=== PATIENT | female | born 1960 | race Caucasian/White ===

== ENCOUNTER 2023-11-24 14:49 | Emergency (ER) | payer OTHER, BC, SELFPAY ==
[2023-11-24 14:57] VITALS: BP 154/80
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
--- NOTE | 2023-11-24 17:33 | EDRN ---
REviewed discharge instructions with patient. Verbalized understanding. Ambulated with steady gait to the lobby.
[2023-11-24 17:34] VITALS: BP 136/88
== END 2023-11-24 17:35 | disposition home or self-care (01) ==
LOC: EMR 14:49
PROVIDERS: EMERGENCY PHYSICIAN Student in an Organized Health Care Education/Training Program; FAMILY PHYSICIAN Family Medicine
DX: S06.0X0A Concussion without loss of consciousness, initial encounter (principal); S20.219A Contusion of unspecified front wall of thorax, initial encounter; V43.52XA Car driver injured in collision with other type car in traffic accident, initial encounter; R68.84 Jaw pain; R03.0 Elevated blood-pressure reading, without diagnosis of hypertension
CPT/HCPCS: 99284; 70450; 70486; 71101

== ENCOUNTER 2024-02-13 08:00 | Outpatient (RCR) | payer OTHER, BC, SELFPAY | END 2024-02-22 23:59 | disposition home or self-care (01) | LOC: RPT 08:00 | PROVIDERS: ATTENDING PHYSICIAN Nurse Practitioner Adult Health; FAMILY PHYSICIAN Family Medicine | DX: F07.81 Postconcussional syndrome (principal); R41.89 Other symptoms and signs involving cognitive functions and awareness; R26.89 Other abnormalities of gait and mobility; Z73.6 Limitation of activities due to disability | CPT/HCPCS: 97010; 97110; 97112; 97140; 97163 ==

== ENCOUNTER 2024-02-22 14:58 | Day surgery (SDC) | payer BC, SELFPAY ==
[2024-02-22] VITALS (18 sets, daily range): BP systolic 30–139; BP diastolic 55–80; BMI 30.3
[2024-02-22 10:55] LABS: % Basophils 0.3 % (0-2); % Immature Granulocytes 0.4 % (0-0.5); % Lymphocytes 11.1 % (20.5-51.1); % Monocytes 10.2 % (1.7-9.3); Absolute Immature Granulocytes 0.1 10^3/uL (0-0.05); Absolute Lymphocytes 1.5 10^3/uL (1.2-3.4); Absolute Monocytes 1.4 10^3/uL (0.1-0.6); Absolute Neutrophils 10.5 10^3/uL (1.4-6.5); Hematocrit 40.2 % (37.0-47.0); Hemoglobin 14.2 g/dL (12.0-16.0); Mean Corp Hgb Conc. 35.3 g/dL (33.0-37.0); Mean Corpuscular Hgb 32.9 pg (27.0-31.0); Mean Corpuscular Volume 93.1 fL (81.0-99.0); Mean Platelet Volume 9.3 fL (7.4-10.4); Nucleated Red Blood Cells % 0 %; Platelet Count 349 10^3/uL (130-400); Red Blood Cell Count 4.32 10^6/uL (4.20-5.40); Red Cell Dist. Width 12.4 % (11.5-14.5); White Blood Cell Count 13.5 10^3/uL (4.8-10.8)
[2024-02-22 10:56] LABS: Urine Albumin Trace (Neg - Trace); Urine Bilirubin 1+ (Negative); Urine Character Clear (Clear); Urine Color Amber; Urine Glucose Negative (Negative); Urine Ketone 1+ (Negative); Urine Leukocyte 1+ (Negative); Urine Nitrite Positive (Negative); Urine Occult Blood Trace (Negative); Urine Specific Gravity 1.025 (<1.030); Urine Urobilinogen 1+ (Neg - 1+)
[2024-02-22 11:15] LABS: Urine Bacteria Few (Negative); Urine Red Blood Cell 0-2 /HPF (0-2)
[2024-02-22 11:19] LABS: ALT (SGPT) 30 U/L (0-35); AST (SGOT) 25 U/L (14-36); Albumin 4.8 g/dl (3.5-5.0); Alkaline Phosphatase 110 U/L (38-126); Blood Urea Nitrogen 19 mg/dl (7-17); Calcium 10.2 mg/dl (8.4-10.2); Carbon Dioxide 28 mmol/L (22-30); Chloride 100 mmol/L (98-107); Estimated Creatinine Clearance 98 ml/min; Glucose 114 mg/dl (70-99); Lipase 43 U/L (23-300); Potassium 4.2 mmol/L (3.5-5.1); Sodium 139 mmol/L (135-145); Total Bilirubin 0.8 mg/dl (0.2-1.3); eGFR > 60.00
--- NOTE | 2024-02-22 15:14 | CON.GS ---
Consultation
-
Requesting Provider: Douglas
Performing Provider: Jay Jay
Reason for Consultation: Acute appendicitis
Medical History
-
Chief Complaint: Abd pain
History of Present Illness:
63F with acute onset abd pain 2 nights ago, localized to right linda-abdomen. Yesterday the pain progressed and she began to have nausea without vomiting. Her BMs have been normal, she reports dark urine in the ED. Never had this pain before. Denies
f/c. Pain is nonradiating, no exacerbating/relieving factors.
Past Medical History
Past Medical History: Reviewed & Noncontributory
Past Surgical History: Cholecystectomy (lap)
Social History
Tobacco: Non-Smoker
Alcohol: None
Drug: None
Family History
Family History: Reviewed & Noncontributory
Allergies / Home Medications
Allergy/AdvReac Type Severity Reaction Status Date / Time
latex Allergy Unknown Rash Verified 02/22/24 10:51
miconazole Allergy Unknown Rash Verified 02/22/24 10:51
[From Monistat 1 Combo Pack]
Penicillins Allergy Unknown Anaphylaxis Verified 02/22/24 10:51
bee pollen Allergy Anaphylaxis Verified 02/22/24 10:51
ciprofloxacin [From Cipro] Allergy Unknown Verified 02/22/24 10:51
vaccine adjuvant system, Allergy Unknown Verified 02/22/24 10:51
AS01B liposomal
[From Shingrix (PF)]
varicella-zoster virus Allergy Unknown Verified 02/22/24 10:51
glycoprotein E, recombinant
[From Shingrix (PF)]
monistat Allergy Unknown Rash Uncoded 02/22/24 10:51
�Medication �Instructions �Recorded �Confirmed �Type
acetaminophen 650 mg 1,300 mg PO [id number] PRN mild pain 01/25/23 01/25/23 History
tablet,extended release (Tylenol
Arthritis Pain)
sertraline 50 mg tablet 100 mg PO DAILY 01/25/23 09/06/23 History
guaifenesin 600 mg tablet, 600 mg PO Q12 #30 tabs 09/07/23 Rx
extended release 12 hr
prednisone 5 mg tablets in a dose 5 mg PO DIRECTED #21 ea 09/07/23 Rx
pack
Review of Systems
-
A 10 point review of systems was completed, and was negative except as per HPI.
Physical Exam
Vital Signs
Temp Pulse Resp BP Pulse Ox
98.1 F 85 15 114/55 97
02/22/24 10:45 02/22/24 14:15 02/22/24 14:15 02/22/24 14:00 02/22/24 14:15
02/21/24 02/22/24 02/23/24
06:59 06:59 06:59
Actual Weight 90.265 kg
Body Mass Index (BMI) 30.3
Lab Results
02/22/24 10:47
02/22/24 10:47
WBC 13.5 10^3/uL (4.8-10.8) H 02/22/24 10:47
Hgb 14.2 g/dL (12.0-16.0) 02/22/24 10:47
Hct 40.2 % (37.0-47.0) 02/22/24 10:47
Plt Count 349 10^3/uL (130-400) 02/22/24 10:47
Abs Immat Gran (auto) 0.1 10^3/uL (0-0.05) H 02/22/24 10:47
Neutrophils % 78.0 % (42.2-75.2) H 02/22/24 10:47
Physical Exam
General: Well Developed, Well Nourished and No Apparent Distress
GI: Soft, Non Distended and Tender (ttp to RLQ)
Skin: Warm and Dry
Neuro: AO x 3
Psych: Calm
Data Reviewed
-
CT Scan: Image Personally Visualized and interpreted, Report Reviewed by me, Discussed with Physician and Discussed with Patient
Labs: Labs Reviewed by me and Discussed with Patient
Assessment / Plan
-
63F with acute appendicits with fecalith
AFVSS, ttp to RLQ on exam
WBC 13K
CT c/w appendicitis, fecalith noted, no obvious perforation/abscess
Plan:
OCTOR for lap appy
Admit for obs postop
IV invanz 1g (PCN/quinolone allergy)
--- NOTE | 2024-02-22 16:43 | W.IMMPOSTOP ---
Surgical Immed Post Op Note
-
Primary Surgeon: Jay Jay
Pre-op Diagnosis: Acute appendicitis
Post-op Diagnosis: Same
Procedure Performed: Laparoscopic appendectomy
Anesthesia Type: GETA
Specimen / Cultures: Appendix
Estimated Blood Loss: 15cc
Complications: None immediate
Operative Findings: Lateral/retrocecal severely inflamed and dilated appendix, no obvious perforation; purulent fluid present, distal appendix slightly disrupted during dissection with small stool spillage, purulent fluid and stool irrigated and
suctioned.
--- NOTE | 2024-02-22 16:46 | OR.RPT ---
Addendum entered and electronically signed by Ubaldo Goyal MD 02/22/24 16:55:
Addendum: 19 fr vero drain into RLQ placed to LLQ port site and secured with 2-0 nylon suture due to presence of pus/contamination
Original Note:
Operative Report
Operative Report
Pre-op Diagnosis: Acute appendicitis
Post-op Diagnosis: Same
Procedure Performed: Laparoscopic appendectomy
Anesthesia Type: GETA
Specimen / Cultures: Appendix
Estimated Blood Loss: 15cc
Complications: None immediate
Operative Findings: Lateral/retrocecal severely inflamed and dilated appendix, no obvious perforation; purulent fluid present, distal appendix slightly disrupted during dissection with small stool spillage, purulent fluid and stool irrigated and
suctioned.
Date of Surgery: 02/22/24
Postoperative diagnosis: Same.
Indications: This 63F developed right lower quadrant abdominal pain and on workup was found to have acute appendicitis. Laparoscopic appendectomy was elected.
Description of procedure: The patient was placed on the operating table in the supine position. General anesthesia was induced. A time-out was completed verifying correct patient, procedure, site, positioning, and special equipment prior to
beginning this procedure. An orogastric tube was placed. The abdomen was prepped and draped in the usual sterile fashion. A stab incision was made in left upper quadrant and the Veress needle was inserted. Proper position was confirmed by aspiration
and saline meniscus test. The abdomen was insufflated with carbon dioxide to a pressure of 12 mmHg. The patient tolerated insufflation well.
A 5mm optical trocar was then inserted at the left lower quadrant. The laparoscope was inserted and the abdomen inspected. No injuries from initial trocar placement or Veress needle insertion were noted. Additional trocars were then inserted in the
following locations: a 12-mm trocar at the umbilicus and a 5-mm trocar midline in the suprapubic space. The abdomen was inspected and no abnormalities were found. The table was placed in the Trendelenburg position with the right side up. The cecum
and appendix were adherent to the pelvic sidewall. Blunt sweeps liberated the cecum and appendix with release of small purulence. The appendix itself was densely adherent to the cecum at the lateral and retrocecal aspect. The right colon was
mobilized along the avascular lateral plane with the ligasure device. The appendix was gently bluntly teased away from the cecum until the tip was liberated from its superior attachments and retracted inferiorly. The tip of the appendix was gently
grasped with an atraumatic grasper and retracted toward the patient�s feet and abdominal wall. This maneuver exposed the appendiceal blood supply which was controlled with the ligasure device. Following this, a laparoscopic linear cutting stapler
with a 45mm wu load was deployed and used to transect the appendix at its base including a cuff of cecum. The appendix was placed in an endoscopic retrieval bag, removed through the umbilical port, and passed off the table as a specimen.
We then turned our attention to the staple line, which was noted to be hemostatic. The right lower quadrant and pelvis were thoroughly irrigated and suctioned. The umbilical trocar site was closed at the fascial level laparoscopically with 2-0 PDS
under direct vision. Secondary trocars were removed under direct vision and noted to be hemostatic. The laparoscope was withdrawn and the abdomen was allowed to collapse. The skin was closed with subcuticular sutures of 4-0 monocryl and topical skin
adhesive. The orogastric tube was removed.
The patient tolerated the procedure well and was taken to the postanesthesia care unit in stable condition.
[2024-02-22] MEDS: DEMEROL 12.5 MG IV ×2 (17:11→17:53)
[2024-02-22] MEDS: DILAUDID 0.5 MG IV (18:14)
--- NOTE | 2024-02-22 18:45 | PTCARENOTE ---
Pt received from the PACU via bed. Transport was w/o incident. Pt is AAOx3, HRR, lungs are clear, resp. easy. VSS, Pt is afebrile. Pt reports pain as mild at present and denies nausea. Pt with 2 Lap sites and one poke site. Well approximated w/
surgical glue. Left abd with ARA drain intact. Pt instructed on plan of care. Pt verbalized understanding of instructions. Call high is within reach.
[2024-02-22] MEDS: ROXICODONE 10 MG PO ×2 (19:50→23:45)
[2024-02-22] MEDS: LOVENOX 40 MG SC (19:51)
[2024-02-22] MEDS: TYLENOL 650 MG PO (22:40)
[2024-02-23] VITALS (7 sets, daily range): BP systolic 110–131; BP diastolic 51–78
[2024-02-23] MEDS: ROXICODONE 5 MG PO ×3 (04:46→17:35)
--- NOTE | 2024-02-23 07:58 | W.PN.GS2 ---
Today's Communication / Plan
-
`
Assessment / Plan
-
Assessment: 63 y/o female POD#1 s/p lap appy - for acute appendicitis - some stool spillage from appendix, purulence
AFVSS
doing well post op
ARA with light SSF
Plan: multimodal pain control options
reg diet as tolerated but cautioned to go slow and monitor for nausea/distention throughout the day
IVFs
continue Invanz for severity of appendicitis
continue ARA
lovenox for VTEp
Subjective Data
-
Date of Service: February 23, 2024
pt seen and examined
preop symptoms improved
initial post op pain also better controlled this AM
no nausea, hungry
Objective Data
-
Intake and Output
02/22/24 02/23/24 02/24/24
06:59 06:59 06:59
Intake Total 240 / 240
Output Total 95 / 95
Balance 145 / 145
Intake:
Oral fluids 240 / 240
Output:
Drain Output (Total) 95 / 95
Left Lower Abdomen Amanuel- 95 /
Bach
Other:
Number of approximated LARGE 2
amounts of urine
Vital Signs
Temp Pulse Resp BP Pulse Ox
97.8 F 65 18 110/65 94
02/23/24 07:15 02/23/24 07:15 02/23/24 07:15 02/23/24 07:15 02/23/24 07:15
Lab Results
02/22/24 10:47
02/22/24 10:47
Calcium 10.2 mg/dl (8.4-10.2) 02/22/24 10:47
Total Bilirubin 0.8 mg/dl (0.2-1.3) 02/22/24 10:47
AST 25 U/L (14-36) 02/22/24 10:47
ALT 30 U/L (0-35) 02/22/24 10:47
Alkaline Phosphatase 110 U/L (38-126) 02/22/24 10:47
Total Protein 8.0 g/dl (6.3-8.2) 02/22/24 10:47
Albumin 4.8 g/dl (3.5-5.0) 02/22/24 10:47
Physical Exam
-
NAD AAOx3
ABD: soft, ND, TTP at incision sites with some ecchymosis, also localized right sided abd wall ecchymosis
ARA with mostly serous fluid
[2024-02-23] MEDS: NSS 1000 IV ×2 (08:40→22:25)
[2024-02-23] MEDS: ZOLOFT 100 MG PO (08:44)
--- NOTE | 2024-02-23 11:12 | CM ---
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
Pharmacy is [facility] and PCP is Dr. Kelli Moss. Patient will stay with her sister for a few days after discharge. Anticipate no needs at discharge. Does have a drain. Will follow medical progression and if drain remains may need VN services.
Patient's understanding is that drain will be removed prior to discharge.
[2024-02-23] MEDS: ROXICODONE 10 MG PO (13:27)
[2024-02-23] MEDS: INVANZ 60 MG IV (15:25)
[2024-02-23] MEDS: LOVENOX 40 MG SC (17:18)
--- NOTE | 2024-02-23 18:09 | ED.GENMED ---
History of Present Illness
General
Chief Complaint: Abdominal Pain
Source: patient
Exam Limitations: none
Time Seen by Provider: 02/22/24 10:41
Nursing documentation reviewed up to this point in time: agreed with
Travel History
Have you had any contact with someone who has COVID-19?: No
Do you have any symptoms of coronavirus? Fever > 100 degrees, chills, cough, shortness of breath, sore throat, loss of taste or smell, muscle aches, or headache?: No
History of Present Illness
History of Present Illness:
63-year-old female past medical history of asthma anxiety depression presenting to the emergency department today with concerns of right lower quadrant abdominal pain starting yesterday associated nausea. Denies any chest pain shortness of breath
vomiting.
Past History
Past History
ED Past Medical History: Asthma and Psychiatric (anxiety)
ED Past Surgical History: None
Social History
Tobacco: Non-smoker
Alcohol: Daily (1-2 glasses wine/day)
Employment: Employed
Review of Systems
Review of Systems
Allergies reviewed?: Yes
All Other Systems: ROS reviewed and negative except as documented in HPI and ROS
Phy Exam
Physical Exam
Physical Exam:
GENERAL: Alert , in no apparent distress
EYE: pupils equal and reactive
NECK: Supple, no significant adenopathy.
ENT: o/p clr, mmm.
CARDIAC: Regular rate and rhythm .
LUNGS: Clear breath sounds bilaterally, no acute respiratory distress, no wheezes/rales/rhonchi
ABDOMEN: Right lower quadrant abdominal pain otherwise soft benign abdomen voluntary guarding
NEUROLOGICAL: Alert and oriented, no focal neuro deficits
SKIN: Warm and dry, skin intact.
MUSCULOSKELETAL: No edema, well perfused.
PSYCH: Normal and appropriate interaction.
Course
Orders/Labs/Results
Orders:
Orders
02/22/24 10:47
Complete Blood Count/With Diff Urgent
Comprehensive Metabolic Panel Urgent
Lipase Urgent
Urinalysis Reflex To Culture Urgent
Date Specimen was Collected: 02/22/24
Time Specimen was Collected: 10:47
Urine Microscopic Reflex Cult Urgent
Urine Culture Urgent
JONATHON Source: U
Specimen Description:
Date Specimen was Collected: 02/22/24
Time Specimen was Collected: 10:47
02/22/24 11:28
CT Abd/Pel (IV only)-DH only Urgent
Comment:
Reason For Exam: rlq abd pain
02/22/24 15:01
Ertapenem [Invanz] 1,000 mg 0.9% Sodium Chloride [Nss] 50 ml IV NOW
02/22/24 15:10
HYDROmorphone [Dilaudid] 0.25 mg IV PACU-Q5MPRN PRN
HYDROmorphone [Dilaudid] 0.5 mg IV PACU-Q5MPRN PRN
Meperidine [Demerol] 12.5 mg IV PACU-Q5MPRN PRN
Ondansetron Injectable [Zofran] 4 mg IV PACU-ONCEPRN PRN
Prochlorperazine [Compazine] 5 mg IV PACU-ONCEPRN PRN
Notify MD As Directed
Notify physician if: for SDS patients with known or suspected sleep obstructive sleep apnea, monitor in the
PACU.
Notify MD for any apneic/desaturation episodes
O2 Therapy [RESP] Urgent
Titrate/Wean O2 to maintain O2 sat greater than (%): 92
Special Instructions: -Provide supplemental oxygen to achieve O2 sat of 92% or greater.
-After 15 min, may wean O2 and discontinue if patient is able to maintain O2 sat of 92%
or greater during recovery period.
If patient is a discharge home, without oxygen therapy, notify anestheiologist if
unable to maintain O2 SAT of 92% or greater on room air for MD clearance.
02/22/24 15:15
Dexamethasone Sod Phosphate [Decadron] 20 mg .ROUTE .STK-MED ONE
Fentanyl Citrate/Pf [Sublimaze] 100 mcg .ROUTE .STK-MED ONE
Lidocaine HCl/Pf [Xylocaine-Mpf 1% Vial] 50 mg .ROUTE .STK-MED ONE
Midazolam HCl [Versed] 2 mg .ROUTE .STK-MED ONE
Normosol (Mult Electrolytes) [Normosol-R] 1,000 ml IV PER PROTOCOL
Propofol [Diprivan] 20 ml .ROUTE .STK-MED
Rocuronium Brooks [Rocuronium] 50 mg .ROUTE .STK-MED ONE
02/22/24 15:22
Bupivacaine Pf 0.5% [Sensorcaine 0.5% Single Dose] 30 ml .ROUTE .STK-MED ONE
02/22/24 15:54
HYDROmorphone [Dilaudid] 1 mg .ROUTE .STK-MED ONE
02/22/24 16:11
Sugammadex Sodium [Bridion] 200 mg .ROUTE .STK-MED ONE
OR Pathology Routine
Pre-Operative Diagnosis: ACUTE APPENDICITIS
Post-Operative Diagnosis: SAME
Operative Procedure: LAP APPY
Surgeon: JAY JAY
Circulating Nurse: RUBINA
Specimen Type: APPENDIX
02/22/24 16:13
Acetaminophen 1000MG/100Ml [Ofirmev] 1,000 mg in 100 ml .ROUTE .STK-MED
02/22/24 16:49
Code Status As Directed
Resuscitation Status: Full Code
Ibuprofen [Motrin] 400 mg PO Q6HPRN PRN
02/22/24 16:50
Admit Patient As Directed
Co-Sign Provider:
Level of Care: Post Proc/Surg Recovery
Assign to:: Medical/Surgical
Physician / Group: Jay Jay
Diagnosis: Acute appendicitis
Reason for Overnight Stay: Standard of Care
Activity As Directed
Activity Level: Out of Bed-Early Mobility
Anti-embolism (AWAIS) Hose As Directed
Type: Thigh high
Intake/ Output As Directed
Frequency: Per unit guidelines
Pneumatic Compression Sleeves As Directed
Type: Knee high
Vital Signs As Directed
Frequency: Per unit guidelines
Rx Incentive Spirometry [RESP] Routine
Frequency: q1h while awake
# of times per hour: 10
DX Deep Vein Thrombosis Video Routine
02/22/24 17:09
Meperidine [Demerol] 25 mg .ROUTE .STK-MED ONE
02/22/24 18:00
Enoxaparin Sodium [Lovenox] 40 mg SC QPM
02/22/24 18:11
HYDROmorphone [Dilaudid] 0.5 mg .ROUTE .STK-MED ONE
02/22/24 19:17
Oxycodone [Roxicodone] 5 mg PO Q4HPRN PRN
02/22/24 19:18
Oxycodone [Roxicodone] 10 mg PO Q4HPRN PRN
02/22/24 20:00
Flush (0.9% Sodium Chloride) [Flush (Nss)] See Dose Instructions IV PER PROTOCOL
02/22/24 20:20
Ondansetron Injectable [Zofran] 4 mg IV Q6HPRN PRN
02/22/24 22:19
Acetaminophen [Tylenol] 650 mg PO Q4HPRN PRN
02/23/24 Breakfast
Regular
At Your Request: Full Participation
02/23/24 08:00
0.9% Sodium Chloride 1000 ml [Nss] 1,000 ml IV 100 mls/hr
Sertraline HCl [Zoloft] 100 mg PO DAILY
02/23/24 16:00
Ertapenem [Invanz] 1,000 mg 0.9% Sodium Chloride [Nss] 50 ml IV Q24H
Abnormal Lab Results
02/22/24
10:47
WBC 13.5 H 10^3/uL
(4.8-10.8)
MCH 32.9 H pg
(27.0-31.0)
Abs Immat Gran (auto) 0.1 H 10^3/uL
(0-0.05)
Absolute Neuts (auto) 10.5 H 10^3/uL
(1.4-6.5)
Absolute Monos (auto) 1.4 H 10^3/uL
(0.1-0.6)
Neutrophils % 78.0 H %
(42.2-75.2)
Lymphocytes % 11.1 L %
(20.5-51.1)
Monocytes % 10.2 H %
(1.7-9.3)
BUN 19 H mg/dl
(7-17)
Glucose 114 H mg/dl
(70-99)
Urine Ketones 1+ A
(Negative)
Ur Occult Blood Reflex Trace A
(Negative)
Urine Nitrite (Reflex) Positive A
(Negative)
Urine Bilirubin 1+ A
(Negative)
Leukocyte Esterase Rfl 1+ A
(Negative)
Urine Bacteria (Reflex) Few A
(Negative)
02/22/24 10:47
02/22/24 10:47
Vital Signs
Initial and Last Documented VS:
Initial Vital Signs
Temp Pulse Resp BP Pulse Ox
98.1 F 78 16 123/76 96
02/22/24 10:45 02/22/24 10:45 02/22/24 10:45 02/22/24 10:45 02/22/24 10:45
Last Documented Vital Signs
Temp Pulse Resp BP Pulse Ox
98.1 F 81 18 127/65 94
02/23/24 15:10 02/23/24 15:10 02/23/24 15:10 02/23/24 15:10 02/23/24 15:10
MDM/Problems Addressed
MDM/Problems Addressed:
63-year-old female presenting to the emergency department today with concerns of right lower quadrant abdominal pain starting yesterday associated nausea no additional symptoms otherwise vital signs normal upon arrival white count 13.[address] scan performed showing acute appendicitis discussed with general surgery will be admitted for surgery. Started on antibiotics here. Patient does have allergy to ciprofloxacin and penicillins was given meropenem.
*Critical Care Note
Total Time (30-74mins, 75-104mins- exclusive of procedures): Not Applicable
ED Attending Note
-
Portions of this chart may have been created with voice recognition software.� Occasional wrong word or��sound alike� substitutions may have occurred due to the inherent limitations of voice recognition software.
Discharge Plan
Departure
Patient Disposition: OR
Date of Disposition: 02/22/24
Time of Disposition: 12:00
Admit to: Med/Surg
Admit to doctor: Jay Jay
Presentation/result/management discussed w/ accepting MD/DO: Hospitalist
Patient with high blood pressure during this ER visit?: No
Condition: Good
Covid-19: Not Applicable
Discharge Problem:
Acute appendicitis
Interventions
Interventions:
*Risk Screen - Suicide Last Done: 02/22/24 10:45
*General Assessment Last Done: 02/22/24 10:45
*Neglect/Abuse Screening Last Done: 02/22/24 10:45
ED- Fall Risk Assessment Last Done: 02/22/24 10:45
*ED COVID-19 Vaccine History Last Done: 02/22/24 10:45
*Nursing Disposition Last Done: 02/22/24 14:45
GM-Djzbdg-Jjmfdvzpvq Assessment Last Done: 02/22/24 10:45
Discharge Date and Time
Discharge Date/Time: 02/22/24 14:46
[2024-02-23] MEDS: MOTRIN 400 MG PO (21:25)
[2024-02-24] MEDS: TYLENOL 650 MG PO ×2 (02:00→16:27)
[2024-02-24] MEDS: NSS IV (05:17)
[2024-02-24 07:05] VITALS: BP 107/63
--- NOTE | 2024-02-24 08:49 | W.PN.GS2 ---
Addendum entered and electronically signed by Michael Trujillo MD 02/24/24 09:46:
Patient seen and examined.
Pain improved, localized to RLQ overlying ecchymoses. Mild bloating, but denies any nausea or vomiting. Passing flatus, no BM. Afebrile. Voiding. Ambulating.
Gen: NAD
Abd: soft, tenderness overlying ecchymosis, mild distension, non-peritoneal, incisions c/d/i - no erythema or drainage, mild ecchymosis, ARA serosang
Patient is a 63 yo F POD#2 s/p lap appy - for acute appendicitis - some stool spillage from appendix, purulence
AFVSS
Doing well post op, continues to improve
Tolerating diet thus far, now passing flatus
ARA with light SSF
Plan:
-- Regular diet
-- Pain control: Tylenol, Toradol, Oxycodone
-- HLIV
-- Continue Invanz given severity of appendicitis, will transition to PO just prior to DC to monitor for tolerance
-- Continue ARA, anticipate removal upon discharge
-- Lovenox for VTEp
-- Tentative plan for DC tomorrow AM
Original Note:
Today's Communication / Plan
-
Regular diet
OOB/Increase activity
Continue IV abx
Assessment / Plan
-
Assessment: 63 y/o female POD#2 s/p lap appy - for acute appendicitis - some stool spillage from appendix, purulence
AFVSS
doing well post op, continues to improve
tolerating diet thus far, now passing flatus. High risk for ileus.
ARA with light SSF
Plan: multimodal pain control options
reg diet as tolerated but cautioned to go slow and monitor for nausea/distention throughout the day
IVFs
continue Invanz given severity of appendicitis
continue ARA, anticipate removal upon discharge
lovenox for VTEp
Subjective Data
-
Date of Service: February 24, 2024
Patient seen and examined at bedside with Dr. Trujillo. Bloating persists but now passing flatus. Denies n/v. No BM as of yet. Pain improves everyday
Objective Data
-
Intake and Output
02/23/24 02/24/24 02/25/24
06:59 06:59 06:59
Intake Total 240 / 240 1520 / 1520
Output Total
Balance 145 / 145 1440 / 1440
Intake:
Oral fluids 240 / 240 1520 / 1520
Output:
Drain Output (Total)
Left Lower Abdomen Amanuel-
Bach
Other:
Number of approximated MODERATE 2
amounts of urine
Number of approximated LARGE 2
amounts of urine
Vital Signs
Temp Pulse Resp BP Pulse Ox
98.6 F 67 18 107/63 97
02/24/24 07:05 02/24/24 07:05 02/24/24 07:05 02/24/24 07:05 02/24/24 07:05
Lab Results
02/22/24 10:47
02/22/24 10:47
Calcium 10.2 mg/dl (8.4-10.2) 02/22/24 10:47
Total Bilirubin 0.8 mg/dl (0.2-1.3) 02/22/24 10:47
AST 25 U/L (14-36) 02/22/24 10:47
ALT 30 U/L (0-35) 02/22/24 10:47
Alkaline Phosphatase 110 U/L (38-126) 02/22/24 10:47
Total Protein 8.0 g/dl (6.3-8.2) 02/22/24 10:47
Albumin 4.8 g/dl (3.5-5.0) 02/22/24 10:47
Physical Exam
-
NAD AAOx3
ABD: soft, ND, TTP at incision sites with some ecchymosis, also localized right sided abd wall ecchymosis
ARA with mostly serous fluid
[2024-02-24] MEDS: ZOLOFT 100 MG PO (08:51)
[2024-02-24] MEDS: MOTRIN 400 MG PO ×2 (09:01→18:22)
[2024-02-24 15:05] VITALS: BP 111/63
--- NOTE | 2024-02-24 15:57 | CM ---
POD #2, Lap appy. ARA drain in place. Discharge Plan of Care: Anticipate home with no needs unless ARA remains in place. Then need to consider VN services.
[2024-02-24] MEDS: INVANZ 60 MG IV (16:25)
[2024-02-24] MEDS: LOVENOX 40 MG SC (16:25)
[2024-02-24 23:35] VITALS: BP 102/56
[2024-02-25] MEDS: MOTRIN 400 MG PO (04:02)
[2024-02-25 07:17] VITALS: BP 117/63
--- NOTE | 2024-02-25 08:29 | W.PN.GS2 ---
Today's Communication / Plan
-
-- DC today
Assessment / Plan
-
Assessment: 63 y/o female POD#3 s/p lap appy - for acute appendicitis - some stool spillage from appendix, purulence
AFVSS
Doing well post op, continues to improve, tolerating diet
ARA with light SSF
Plan: Multimodal pain control options
Reg diet
HLIV
Continue Invanz given severity of appendicitis, transition to PO today, ID curbside given limitations with allergies
ARA removed
Home medications
Lovenox for VTEp
DC today
Subjective Data
-
Date of Service: February 25, 2024
Manage complaints. Denies worsening abdominal pain. Tolerated regular diet, no nausea or vomiting. Passing flatus and BMs. Afebrile. Voiding. Ambulating.
Objective Data
-
Intake and Output
02/24/24 02/25/24 02/26/24
06:59 06:59 06:59
Intake Total 1520 / 1520 1140 / 1140
Output Total 80 / 80 50 / 50
Balance 1440 / 1440 1090 / 1090
Intake:
Oral fluids 1520 / 1520 1140 / 1140
Output:
Drain Output (Total) 80 / 80 50 / 50
Left Lower Abdomen Amanuel- 80 / 80 50 / 50
Bach
Other:
Number of approximated MODERATE 2 1
amounts of urine
Vital Signs
Temp Pulse Resp BP Pulse Ox
98.3 F 67 17 117/63 96
02/25/24 07:17 02/25/24 07:17 02/25/24 07:17 02/25/24 07:17 02/25/24 07:17
Lab Results
02/22/24 10:47
02/22/24 10:47
Calcium 10.2 mg/dl (8.4-10.2) 02/22/24 10:47
Total Bilirubin 0.8 mg/dl (0.2-1.3) 02/22/24 10:47
AST 25 U/L (14-36) 02/22/24 10:47
ALT 30 U/L (0-35) 02/22/24 10:47
Alkaline Phosphatase 110 U/L (38-126) 02/22/24 10:47
Total Protein 8.0 g/dl (6.3-8.2) 02/22/24 10:47
Albumin 4.8 g/dl (3.5-5.0) 02/22/24 10:47
Physical Exam
-
Gen: NAD
Abd: soft, tender to palpation at skin level overlying ecchymosis, ND, non-peritoneal, incisions with ecchymosis and RLQ ecchymosis, no erythema, or drainage, slight tears in skin, ARA serosang
[2024-02-25] MEDS: CEFTIN 500 MG PO (08:34)
[2024-02-25] MEDS: ZOLOFT 100 MG PO (08:34)
[2024-02-25] MEDS: FLAGYL 500 MG PO (08:35)
[2024-02-25] MEDS: TYLENOL 650 MG PO (08:38)
[2024-02-25 13:50] VITALS: BP 142/82
--- NOTE | 2024-02-25 14:57 | W.DS.TRANS ---
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
-
Discharge Instructions:
Discharge Diagnosis/Procedures Acute appendicitis status post laparoscopic
appendectomy
Diet No restrictions
Activity No strenuous activity
Additional Activity Do not lift over 10 lbs for the next 3 weeks
Driving Restrictions Wait until off narcotics and comfortable
twisting
Bathing Restrictions OK to Shower
Wound Care The glue over your incisions will flake off in
the next 2-3 weeks on its own. Wash incisions
gently with soap and water in the shower. Do not
soak in a tub or swim until after 5 days. Call
your surgeon if you have worsening abdominal
pain, nausea with vomiting, redness to your
incisions or a temperature >100.5.
Instructions: Appendectomy, Laparoscopic Surgery (DC)
Stand-Alone Forms:
Changes to Home Medications: No
Discharge Medications:
DC Medications w/original date entered in [employer]
acetaminophen 650 mg tablet,extended release (Tylenol Arthritis Pain) 1,300 mg PO [id number] PRN mild pain 01/25/23
sertraline 50 mg tablet 100 mg PO DAILY 01/25/23
budesonide 160 mcg-glycopyr 9 mcg-formot 4.8 mcg/actuation HFA inhaler (Breztri Aerosphere) inh inhalation 02/22/24
magnesium oxide 400 mg PO DAILY 02/22/24
multivitamin,min-ferrous fumarate 3.3 mg-folic 25 mcg-herb tablet tab PO 02/22/24
vit [id number] 02/22/24
acetaminophen 325 mg tablet 650 mg (2 x 325 mg) PO Q4HPRN PRN mild pain #1 tab 02/24/24
ibuprofen 400 mg tablet 400 mg PO Q6HPRN PRN mild pain alt with tylenol #1 tab 02/24/24
oxycodone 5 mg tablet 5 mg PO Q4HPRN PRN breakthrough/severe pain #10 tabs 02/24/24
cefuroxime axetil 500 mg tablet 500 mg PO BID #13 tabs 02/25/24
metronidazole 500 mg tablet 500 mg PO TID #20 tabs 02/25/24
Home Medication Changes
Pending Results: No
== END 2024-02-25 13:50 | disposition home or self-care (01) ==
LOC: PACU 14:58
PROVIDERS: ATTENDING PHYSICIAN Surgery; EMERGENCY PHYSICIAN Emergency Medicine; FAMILY PHYSICIAN Family Medicine
DX: K35.32 Acute appendicitis with perforation, localized peritonitis, and gangrene, without abscess (principal)
CPT/HCPCS: 44970; 88304; 74177; 80053; 81003; 81015; 83690; 85025; 87086; 96374; 99285; J1335; Q9967

== ENCOUNTER → 2024-06-22 14:23 | Outpatient (REF) | payer BC, SELFPAY | LOC: WDC 14:23 | PROVIDERS: ATTENDING PHYSICIAN Obstetrics & Gynecology Gynecology; FAMILY PHYSICIAN Family Medicine | DX: Z12.31 Encounter for screening mammogram for malignant neoplasm of breast (principal) | CPT/HCPCS: 77063; 77067 ==

== ENCOUNTER 2025-05-07 03:07 | Observation (INO) | payer BC, SELFPAY ==
[2025-05-06 16:16] VITALS: BP 150/79
[2025-05-06 17:41] VITALS: BMI 30.6
--- NOTE | 2025-05-06 18:14 | ED.GENMED ---
History of Present Illness
<TREVER Owusu - Last Filed: 05/07/25 10:30>
General
Chief Complaint: Back Pain
Source: patient
Exam Limitations: none
Time Seen by Provider: 05/06/25 17:42
Nursing documentation reviewed up to this point in time: agreed with
History of Present Illness
History of Present Illness:
Patient is a 65-year-old female who presents to the ER for evaluation of left lower back pain. Patient reports her 11 and this morning she was in her chair bent over to lift her bag and felt pain and pulling in her left low back. She does feel
that radiates to her left knee. She did take naproxen Tylenol around 11:30 AM. She denies any numbness, tingling weakness lower extremities. Denies any bowel bladder incontinence. She reports movement makes it worse.
Past History
<TREVER Owusu - Last Filed: 05/07/25 10:30>
Past History
ED Past Medical History: Asthma and Psychiatric (anxiety)
ED Past Surgical History: None
Social History
Tobacco: Non-smoker
Alcohol: Daily (1-2 glasses wine/day)
Employment: Employed
Phy Exam
<TREVER Owusu - Last Filed: 05/07/25 10:30>
General Physical Exam
General Presentation: no apparent distress
General age: appears stated age
General Skin: warm and dry
General Habitus: normal
General Mental: alert
General Hydration: appears well hydrated
Neurological Exam
Neurological Exam: alert, oriented x3, no motor deficits, normal reflexs, no sensory deficits and other (Intact sensation to b/l l/e , nml dorsiflexion/plantar flexion)
Musculoskeletal Exam
Musculoskeletal Exam: other (Negative straight leg raise tender throughout the left lower back region)
Skin Exam
Skin Exam: normal color and warm/dry
Psychiatric Exam
Psychiatric Exam: normal mood/affect
Course
<TREVER Owusu - Last Filed: 05/07/25 10:30>
Orders/Labs/Results
Orders:
Orders
05/06/25 18:27
Dexamethasone Pf [Decadron] 10 mg PO NOW STA
Lidocaine [Lidocaine 4% Patch] 1 patch TOPICAL NOW STA
Apply Lidocaine patch(s) to:: left lower lumbar region
diazePAM [Valium Injection] 5 mg IM NOW STA
05/06/25 21:03
HYDROmorphone [Dilaudid] 1 mg IM NOW STA
05/06/25 23:33
CR Lumbar Spine 2 Or 3 Views Urgent
Comment:
Reason For Exam: intractable back pain
05/06/25 23:34
Ketorolac [Toradol] 15 mg IV NOW STA
05/06/25 23:43
Basic Metabolic Panel Urgent
Complete Blood Count/No Diff Urgent
05/07/25 00:47
Pt Eval And Treat Urgent
Activity Level: With Assistance
05/07/25 02:49
Admit/Transfer Patient As Directed
Co-Sign Provider:
Level of Care: Observation services
Assign to:: Medical/Surgical
Physician / Group: Carlitos
Diagnosis: Back Pain
Code Status As Directed
Resuscitation Status: Full Code
PRN Pain Medication Management As Directed
May give lesser potent ordered pain med per pt: Yes
preference::
Protocol:: Medication orders for pain may be administered in a
manner that supports deferring to patient preference
when the pt is:
- Requesting an ordered lesser potent pain medication.
Least to most potent pain medications are defined
as: acetaminophen < NSAID < tramadol < opioids
(morphine, oxycodone, hydromorphone).
- Requesting a lesser dose of the same medication IF
ORDERED.
- Requesting a less intrusive route of administration
if both routes are prescribed by the provider (PO <
IV).
05/07/25 03:15
Diazepam [Valium] 5 mg PO TIDPRN PRN
Ketorolac [Toradol] 10 mg IV Q6HPRN PRN
05/07/25 03:15
Activity As Directed
Activity Level: Ambulate
With Assistance
Heat Application As Directed
Apply heat therapy device to (location):: Low Back
Device Frequency setting:: 20 minute cycles
Device temperature setting:: Moderate: 100 F (38 C)
I/O [Intake/ Output] As Directed
Frequency: Per unit guidelines
Pneumatic Compression Sleeves As Directed
Type: Knee high
Vital Signs As Directed
Frequency: Per unit guidelines
PT Consult [Pt Eval And Treat] Routine
Activity Level: Ambulate
With Assistance
DX Deep Vein Thrombosis Video Routine
05/07/25 Breakfast
Regular
At Your Request: Full Participation
Does patient need a safe tray?: No
05/07/25 08:00
Acetaminophen [Tylenol] 1,000 mg PO TID
Magnesium Oxide 500 mg PO DAILY
Multivitamin [Theragran] 1 tablet PO DAILY
Pantoprazole [Protonix] 40 mg PO DAILY
Sertraline HCl [Zoloft] 100 mg PO DAILY
Abnormal Lab Results
05/06/25
23:43
RBC 4.19 L 10^6/uL
(4.20-5.40)
MCH 32.7 H pg
(27.0-31.0)
Carbon Dioxide 21 L mmol/L
(22-30)
Glucose 172 H mg/dl
(70-99)
05/06/25 23:43
05/06/25 23:43
Vital Signs
Initial and Last Documented VS:
Initial Vital Signs
Temp Pulse Resp BP Pulse Ox
97.9 F 61 16 150/79 100
05/06/25 16:16 05/06/25 16:16 05/06/25 16:16 05/06/25 16:16 05/06/25 16:16
Last Documented Vital Signs
Temp Pulse Resp BP Pulse Ox
97.9 F 54 16 119/70 96
05/07/25 07:38 05/07/25 07:38 05/07/25 07:48 05/07/25 07:38 05/07/25 07:38
<Leobardo Boogie MD - Last Filed: 05/07/25 00:42>
Orders/Labs/Results
Orders:
Orders
05/06/25 18:27
Dexamethasone Pf [Decadron] 10 mg PO NOW STA
Lidocaine [Lidocaine 4% Patch] 1 patch TOPICAL NOW STA
Apply Lidocaine patch(s) to:: left lower lumbar region
diazePAM [Valium Injection] 5 mg IM NOW STA
05/06/25 21:03
HYDROmorphone [Dilaudid] 1 mg IM NOW STA
05/06/25 23:33
CR Lumbar Spine 2 Or 3 Views Urgent
Comment:
Reason For Exam: intractable back pain
05/06/25 23:34
Ketorolac [Toradol] 15 mg IV NOW STA
05/06/25 23:43
Basic Metabolic Panel Urgent
Complete Blood Count/No Diff Urgent
05/07/25 00:47
Pt Eval And Treat Urgent
Activity Level: With Assistance
05/07/25 02:49
Admit/Transfer Patient As Directed
Co-Sign Provider:
Level of Care: Observation services
Assign to:: Medical/Surgical
Physician / Group: Carlitos
Diagnosis: Back Pain
Code Status As Directed
Resuscitation Status: Full Code
PRN Pain Medication Management As Directed
May give lesser potent ordered pain med per pt: Yes
preference::
Protocol:: Medication orders for pain may be administered in a
manner that supports deferring to patient preference
when the pt is:
- Requesting an ordered lesser potent pain medication.
Least to most potent pain medications are defined
as: acetaminophen < NSAID < tramadol < opioids
(morphine, oxycodone, hydromorphone).
- Requesting a lesser dose of the same medication IF
ORDERED.
- Requesting a less intrusive route of administration
if both routes are prescribed by the provider (PO <
IV).
05/07/25 03:15
Diazepam [Valium] 5 mg PO TIDPRN PRN
Ketorolac [Toradol] 10 mg IV Q6HPRN PRN
05/07/25 03:15
Activity As Directed
Activity Level: Ambulate
With Assistance
Heat Application As Directed
Apply heat therapy device to (location):: Low Back
Device Frequency setting:: 20 minute cycles
Device temperature setting:: Moderate: 100 F (38 C)
I/O [Intake/ Output] As Directed
Frequency: Per unit guidelines
Pneumatic Compression Sleeves As Directed
Type: Knee high
Vital Signs As Directed
Frequency: Per unit guidelines
PT Consult [Pt Eval And Treat] Routine
Activity Level: Ambulate
With Assistance
DX Deep Vein Thrombosis Video Routine
05/07/25 Breakfast
Regular
At Your Request: Full Participation
Does patient need a safe tray?: No
05/07/25 08:00
Acetaminophen [Tylenol] 1,000 mg PO TID
Magnesium Oxide 500 mg PO DAILY
Multivitamin [Theragran] 1 tablet PO DAILY
Pantoprazole [Protonix] 40 mg PO DAILY
Sertraline HCl [Zoloft] 100 mg PO DAILY
Abnormal Lab Results
05/06/25
23:43
RBC 4.19 L 10^6/uL
(4.20-5.40)
MCH 32.7 H pg
(27.0-31.0)
Carbon Dioxide 21 L mmol/L
(22-30)
Glucose 172 H mg/dl
(70-99)
05/06/25 23:43
05/06/25 23:43
Vital Signs
Initial and Last Documented VS:
Initial Vital Signs
Temp Pulse Resp BP Pulse Ox
97.9 F 61 16 150/79 100
05/06/25 16:16 05/06/25 16:16 05/06/25 16:16 05/06/25 16:16 05/06/25 16:16
Last Documented Vital Signs
Temp Pulse Resp BP Pulse Ox
97.9 F 54 16 119/70 96
05/07/25 07:38 05/07/25 07:38 05/07/25 07:48 05/07/25 07:38 05/07/25 07:38
<TREVER Owusu - Last Filed: 05/07/25 10:30>
MDM/Problems Addressed
Differential Diagnosis Includes:
Not limited to muscle sprain strain, sciatica
MDM/Problems Addressed:
Symptoms are consistent with lumbar sprain strain, sciatica. Patient in no acute distress ,patient was given steroids and Valium .
Pt initially felt better after Valium and steroids however attempted to move and had increasingly worse pain. She was managed of IM Dilaudid. Will reevaluate and plan for discharge if patient feeling better. Will plan to discharge on Flexeril and
steroids.
Patient remains with no neurological deficits.
Case transferred to Dr. Boogie at this time with disposition pending depending on pain relief
<TREVER Owusu - Last Filed: 05/07/25 10:30>
*Pulse Oximetry
SaO2: 100
Oxygen Mode of Delivery: Room air
Patient hypoxic: no
*Critical Care Note
Total Time (30-74mins, 75-104mins- exclusive of procedures): Not Applicable
ED Attending Note
<TREVER Owusu - Last Filed: 05/07/25 10:30>
-
Portions of this chart may have been created with voice recognition software.� Occasional wrong word or��sound alike� substitutions may have occurred due to the inherent limitations of voice recognition software.
<Leobardo Boogie MD - Last Filed: 05/07/25 00:42>
ED Attending Note
Patient seen and examined by attending physician: Yes
ED Attending Note:
I have seen and evaluated the patient with a [id number] encounter. I have spoken to the advance practicer provider and involved in the medical history, the physical exam, medical decision making.
Evaluation and management service: agree unless noted differently below.
Results interpretation: agree unless noted differently below.
Focused HPI: 65-year-old female with history as noted presents to the ER for evaluation of back pain. Patient reports that she was turning to grab something while she was sitting at her desk and felt a tweak in the left side of her low back. Said
pain in that area since then she says severe spasming with movement. She has had occasional radiating down the left leg. She denies any incontinence of bowel or bladder, weakness in the legs, saddle anesthesia.
Physical exam: Awake alert, laying flat appears uncomfortable. Movement tends to exacerbate pain. Hypertensive but otherwise normal vitals. She does have point tenderness left lumbar paraspinal region. Motor intact distal lower extremities
bilaterally, sensory exam intact in legs bilaterally.
Medical Decision Makin-year-old female presents with low back pain as described above associated with muscle spasms. Vitals and exam as above. Initially she was treated symptomatically with IM Valium, IM Dilaudid, Lidoderm patch and Decadron.
She had marginal improvement. Provided trigger point injection at bedside with marginal improvement. At this point decision made to place an IV give IV Toradol, basic labs sent off. X-ray obtained and reviewed by me shows no acute disease.
Patient still cannot sit up in bed due to severe back spasms will admit for pain management. Discussed with hospitalist.
Discharge Plan
Departure
Patient Disposition: Admit
Date of Disposition: 05/07/25
Time of Disposition: 00:48
Admit to doctor: Carlitos
Presentation/result/management discussed w/ accepting MD/DO: Hospitalist
Patient with high blood pressure during this ER visit?: Yes
Condition: Fair
Covid-19: Not Applicable
Discharge Problem:
Lumbar strain, Sciatica
Interventions
Interventions:
*Risk Screen - Suicide Last Done: 05/06/25 19:08
*General Assessment Last Done: 05/06/25 19:08
*Neglect/Abuse Screening Last Done: 05/06/25 19:08
*ED- Fall Risk Assessment Last Done: 05/06/25 19:08
*ED COVID-19 Vaccine History Last Done: 05/06/25 19:08
ED-Musculoskeletal Assessment Last Done: 05/06/25 17:30
[2025-05-06] MEDS: LIDOCAINE 4% PATCH 1 PATCH TOPICAL (19:03)
[2025-05-06] MEDS: VALIUM INJECTION 5 MG IM (19:03)
[2025-05-06] MEDS: DECADRON 10 MG PO (19:03)
[2025-05-06 19:13] VITALS: BP 145/82
[2025-05-06] MEDS: DILAUDID 1 MG IM (21:09)
[2025-05-06] MEDS: TORADOL 15 MG IV (23:46)
[2025-05-06 23:52] LABS: Hematocrit 39.2 % (37.0-47.0); Hemoglobin 13.7 g/dL (12.0-16.0); Mean Corp Hgb Conc. 34.9 g/dL (33.0-37.0); Mean Corpuscular Volume 93.6 fL (81.0-99.0); Platelet Count 320 10^3/uL (130-400); Red Cell Dist. Width 13.2 % (11.5-14.5)
[2025-05-07 00:19] LABS: Blood Urea Nitrogen 17 mg/dl (7-17); Calcium 9.3 mg/dl (8.4-10.2); Carbon Dioxide 21 mmol/L (22-30); Chloride 105 mmol/L (98-107); Estimated Creatinine Clearance 114 ml/min; Glucose 172 mg/dl (70-99); Potassium 4.4 mmol/L (3.5-5.1); Sodium 137 mmol/L (135-145); eGFR > 60.00
--- NOTE | 2025-05-07 02:51 | HPS.HSE ---
Family Physician
-
Family Physician: Wan Pires MD
Chief Complaint
-
Back pain
History of Present Illness
Patient is a 65y F with PMH significant for anxiety / depression who presents to ED complaining of back pain. Patient states that she twisted in her chair at home today and noted pain in the L lower back. Pain was quite severe and she was
unable to get comfortable. She took naproxen at home without relief. She notes pain in the L lower back with radiation into the posterior thigh. She had difficulty moving due to pain and called 911. She was brought to the ED for further
evaluation.
No LE weakness or numbness. Not incontinent of bowel / bladder.
Medical History
Past Medical History
Past Medical History: Reports Other
Additional Past Medical History:
Anxiety / Depression
Asthma
Past Surgical History: Reports Other
Additional Past Surgical History:
Cholecystectomy
D&C
Appendectomy
Social History
Tobacco: Non-smoker
Alcohol: Daily (2 glasses wine daily.)
Drug: None
Family History
Family History: Not pertinent
Allergies / Home Medications
Allergies reflects when Allergies were last updated in [facility].
Home Medications with original date entered in [facility]
Allergy/Medication List:
Allergies
Allergy/AdvReac Type Severity Reaction Status Date / Time
bee pollen Allergy Anaphylaxis Verified 05/06/25 16:20
ciprofloxacin (From Cipro) Allergy Unknown Verified 05/06/25 16:20
latex Allergy Rash Verified 05/06/25 16:20
miconazole (From Monistat 1 Allergy Rash/any Verified 05/06/25 16:20
Combo Pack) monistat
product
Penicillins Allergy Anaphylaxis Verified 05/06/25 16:20
vaccine adjuvant system, Allergy Unknown Verified 05/06/25 16:20
AS01B liposomal (From
Shingrix (PF))
varicella-zoster virus Allergy Unknown Verified 05/06/25 16:20
glycoprotein E, recombinant
(From Shingrix (PF))
Home Medications
acetaminophen 650 mg tablet,extended release (Tylenol Arthritis Pain) 1,300 mg PO [id number] PRN mild pain 01/25/23
sertraline 50 mg tablet 100 mg PO DAILY 01/25/23
budesonide 160 mcg-glycopyr 9 mcg-formot 4.8 mcg/actuation HFA inhaler (Breztri Aerosphere) 1 inh inhalation DAILY 02/22/24
magnesium oxide 400 mg PO DAILY 02/22/24
multivitamin,min-ferrous fumarate 3.3 mg-folic 25 mcg-herb tablet 1 tab PO DAILY 02/22/24
pantoprazole 40 mg tablet,delayed release 40 mg PO DAILY 05/07/25
Review of Systems
-
History Source: Patient
A 12 point ROS was completed and negative except as noted: Yes
Constitutional: Denies Fever or Chills
Respiratory: Denies Cough or Trouble Breathing
Cardiac: Denies Chest Pain or Palpitations
Abdomen/GI: Denies Abdominal Pain, Nausea, Vomiting or Diarrhea
Musculoskeletal: Reports Other (Back pain); Denies Joint Pain or Edema
Neurological: Denies Dizzy or Headache
Physical Exam
Vital Signs
Vital Signs
Temp Pulse Resp BP Pulse Ox
98.0 F 58 18 145/82 100
05/06/25 19:13 05/06/25 19:13 05/06/25 19:13 05/06/25 19:13 05/06/25 18:32
Physical Exam
General: Other (65y F in no distress.)
HEENT: Moist mucous membranes
Respiratory: Clear; No Wheezes, Rales or Rhonchi
Cardiac: S1/S2 and Regular Rhythm; No Murmur
GI: Soft, Non Tender, Non Distended and Normal Bowel Sounds
Musculoskeletal: No Cyanosis, No Edema and Other (Tenderness / spasm over the L lumbar paraspinals.)
Neuro: AO x 3
Laboratory Results
-
05/06/25 23:43
05/06/25 23:43
Impression/Plan
-
A/P: Patient is a 65y F with PMH significant for anxiety / depression who presents to ED complaining of low back pain.
Low Back Pain / Lumbar Spasm
- Observe overnight for further evaluation and treatment.
- Received multiple pain controlling modalities including trigger point injection in the ED but still unable to stand / ambulate due to pain.
- Continue pain control measures, muscle relaxants, application of heat, etc.
- PT eval in AM.
Anxiety / Depression
- Continue sertraline.
Asthma without Acute Exacerbation
- Continue Breztri.
DVT Prophylaxis: SCDs
Code Status: Full
[2025-05-07 07:38] VITALS: BP 119/70
[2025-05-07] MEDS: PROTONIX 40 MG PO (08:27)
[2025-05-07] MEDS: ZOLOFT 100 MG PO (08:28)
[2025-05-07] MEDS: THERAGRAN 1 TABLET PO (08:28)
[2025-05-07] MEDS: NON-FORMULARY ITEM INH (09:11)
[2025-05-07] MEDS: TORADOL 10 MG IV ×2 (09:25→20:04)
[2025-05-07 10:37] VITALS: BP 139/89
--- NOTE | 2025-05-07 13:07 | CM ---
CM reviewed chart and met with pt bedside in ED. Lives with her brother, 2 story home, [address] in front, 5 [address] back. First floor half BA, second floor BR/full BA. Pt states will sleep on couch until she is feeling better.
Independent in ADLs, personal care and ambulation at baseline, no assistive devices.
No hx VN/SNF
OBS form reviewed and signed.
PCP: Wan Pires
Pharmacy: [facility]
CM will continue to follow for all discharge planning needs.
[2025-05-07] MEDS: LIDOCAINE 4% PATCH 1 PATCH TOPICAL (14:22)
[2025-05-07] MEDS: MEDROL 24 MG PO (14:23)
--- NOTE | 2025-05-07 14:44 | W.PN.UPDATE ---
Update Note
Progress Note Update
Back pain still present, no red flags including urinary or bowel incontinence, weakness.
Added Medrol pack, awaiting PT
Adjusting pain regimen
[2025-05-07 14:47] VITALS: BP 123/62
[2025-05-07] MEDS: TYLENOL 1000 MG PO ×2 (15:29→23:06)
[2025-05-07] MEDS: MAGNESIUM OXIDE 500 MG PO (19:05)
[2025-05-07 19:58] VITALS: BMI 31.0
[2025-05-07] MEDS: REMOVE LIDOCAINE PATCH 1 PATCH REMOVE (23:06)
[2025-05-07 23:14] VITALS: BP 104/48
[2025-05-08] MEDS: TORADOL 10 MG IV (04:17)
[2025-05-08] MEDS: VALIUM 5 MG PO (05:32)
--- NOTE | 2025-05-08 05:50 | PTCARENOTE ---
pt having muscle spasms and pain - given heating pad, and Valium w/+eff. pt resting in bed
[2025-05-08] MEDS: NON-FORMULARY ITEM 2 INH INH (07:28)
[2025-05-08 07:30] VITALS: BP 120/67
[2025-05-08 09:10] LABS: Hematocrit 36.8 % (37.0-47.0); Hemoglobin 12.5 g/dL (12.0-16.0); Mean Corp Hgb Conc. 34.0 g/dL (33.0-37.0); Mean Corpuscular Volume 95.1 fL (81.0-99.0); Platelet Count 314 10^3/uL (130-400); Red Cell Dist. Width 13.2 % (11.5-14.5)
[2025-05-08] MEDS: THERAGRAN 1 TABLET PO (09:34)
[2025-05-08] MEDS: TYLENOL 1000 MG PO (09:34)
[2025-05-08] MEDS: PROTONIX 40 MG PO (09:34)
[2025-05-08] MEDS: ZOLOFT 100 MG PO (09:34)
[2025-05-08] MEDS: LIDOCAINE 4% PATCH 1 PATCH TOPICAL (09:35)
[2025-05-08 10:08] LABS: Blood Urea Nitrogen 21 mg/dl (7-17); Calcium 9.0 mg/dl (8.4-10.2); Carbon Dioxide 22 mmol/L (22-30); Chloride 108 mmol/L (98-107); Estimated Creatinine Clearance 98 ml/min; Glucose 88 mg/dl (70-99); Potassium 4.3 mmol/L (3.5-5.1); Sodium 138 mmol/L (135-145); eGFR > 60.00
[2025-05-08] MEDS: MEDROL 20 MG PO (10:17)
--- NOTE | 2025-05-08 11:19 | W.PN.HOSP.TC ---
Addendum entered and electronically signed by Morgan Coleman MD 05/08/25 16:02:
[id number]
Original Note:
Today's Communication/Plan
-
DC Home with Medrol pack, valium prn
May need further imaging including MRI and Ortho/spine eval outpatient
F/u PCP outpt
Assessment / Plan
Assessment / Plan
Physical Exam
General: Other (65y F in no distress.)
HEENT: Moist mucous membranes
Respiratory: Clear; No Wheezes, Rales or Rhonchi
Cardiac: S1/S2 and Regular Rhythm; No Murmur
GI: Soft, Non Tender, Non Distended and Normal Bowel Sounds
Musculoskeletal: No Cyanosis, No Edema and Other (Tenderness / spasm over the L lumbar paraspinals.)
Neuro: AO x 3
A/P: Patient is a 65y F with PMH significant for anxiety / depression who presents to ED complaining of low back pain.
Low Back Pain / Lumbar Spasm
- Observe overnight for further evaluation and treatment.
- Received multiple pain controlling modalities including trigger point injection in the ED but still unable to stand / ambulate due to pain.
- Continue pain control measures, muscle relaxants, application of heat, etc.
- Medrol Pack Initiated
- Patient able to walk around this morning, states feeling better
- F/u MRI outpatient
- F/u orthospine outpatient
Anxiety / Depression
- Continue sertraline.
Asthma without Acute Exacerbation
- Continue Breztri.
DVT Prophylaxis: SCDs
Code Status: Full
More than 30 minutes spent in discharge including
Final examination of the patient
Summarizing hospital stay
Instructions for continuing care to all relevant caregivers
Preparation of discharge records, prescriptions, and referral forms
Total time spent (in minutes): 36
Anticipated Discharge: Today
Subjective/Interval History
-
Date of Service: May 08, 2025
Had mild improvement with volume although patient states it is due to her sleeping yesterday although still with back pain that is pressing, limiting ambulation
Objective Data
-
Labs:
Laboratory Results
05/08/25
08:17
WBC 6.1
Hgb 12.5
Hct 36.8 L
Plt Count 314
Sodium 138
Potassium 4.3
Chloride 108 H
Carbon Dioxide 22
BUN 21 H
Creatinine 0.7
Glucose 88
Calcium 9.0
Vital Signs:
Vital Signs
Temp Pulse Resp BP Pulse Ox
98.1 F 50 16 120/67 96
05/08/25 07:30 05/08/25 07:30 05/08/25 07:30 05/08/25 07:30 05/08/25 07:30
I&O
05/07/25 05/08/25 05/09/25
06:59 06:59 06:59
Intake Total 880 / 880
Balance 880 / 880
Review of Systems
-
History Source: Patient
All other systems: Not reviewed unless documented
Physical Exam
-
General: Well Developed and Well Nourished
HEENT: Normocephalic, Atraumatic and Moist Mucous Membranes
Respiratory: Clear to Auscultation; Negative Wheezes or Rales
Cardiac: Regular Rhythm and S1/S2
GI: Soft, Nontender and Nondistended
Musculoskeletal: No Clubbing, No Cyanosis and No Edema
Skin: Warm; Negative Rash
Neuro: Nonfocal/Grossly Intact
Data Reviewed
-
Diagnostic Radiology: Report Reviewed by me
Labs: Labs Reviewed by me
--- NOTE | 2025-05-08 11:41 | W.DS.TRANS ---
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
-
Discharge Instructions:
Discharge Diagnosis/Procedures back Pain
Activity As tolerated
Others Tests Imaging as per PCP/Ortho Spine outpatient
Instructions:
Stand-Alone Forms:
Changes to Home Medications: Yes
Discharge Medications:
DC Medications w/original date entered in [facility]
budesonide 160 mcg-glycopyr 9 mcg-formot 4.8 mcg/actuation HFA inhaler (Breztri Aerosphere) 2 inh inhalation R DAILY Lung/Breathing Issues 02/22/24
magnesium oxide 400 mg PO HS Supplement 02/22/24
cyanocobalamin (vitamin B-12) 1,000 mcg tablet 1,000 mcg PO DAILY Supplement 05/07/25
doxycycline hyclate 100 mg tablet 100 mg PO BID Infection 05/07/25
pantoprazole 40 mg tablet,delayed release 40 mg PO DAILY Gastrointestinal Issue 05/07/25
riboflavin (vitamin B2) 50 mg tablet 50 mg PO DAILY Supplement 05/07/25
sertraline 100 mg tablet 100 mg PO DAILY Mental Health/Anxiety 05/07/25
therapeutic multivitamin 1 tab PO DAILY Supplement 05/07/25
acetaminophen 500 mg tablet (Tylenol Extra Strength) 1,000 mg (2 x 500 mg) PO TID 10 days #60 tabs 05/08/25
diazepam 5 mg tablet 5 mg PO TIDPRN PRN Muscle pain / spasm #10 tabs 05/08/25
lidocaine 4 % topical patch 1 patch topical DAILY #30 ea 05/08/25
methylprednisolone 4 mg tablets in a dose pack (Medrol (Ronak)) See Rx Instructions PO .COMPLEX #21 ea 05/08/25
multivitamin with folic acid 400 mcg tablet (Tab-A-Lizbeth) 1 tab PO DAILY #0 tabs 05/08/25
Home Medication Changes
acetaminophen 500 mg tablet (Tylenol Extra Strength) 1,000 mg (2 x 500 mg) PO TID 10 days #60 tabs 05/08/25
diazepam 5 mg tablet 5 mg PO TIDPRN PRN Muscle pain / spasm #10 tabs 05/08/25
lidocaine 4 % topical patch 1 patch topical DAILY #30 ea 05/08/25
methylprednisolone 4 mg tablets in a dose pack (Medrol (Ronak)) See Rx Instructions PO .COMPLEX #21 ea 05/08/25
multivitamin with folic acid 400 mcg tablet (Tab-A-Lizbeth) 1 tab PO DAILY #0 tabs 05/08/25
Pending Results: No
[2025-05-08 11:45] LABS: Ferritin 89.3 ng/ml (11.1-264.0)
--- NOTE | 2025-05-08 12:30 | CM ---
Patient for d/c home today, script for RW requested.
Referral to [facility] liaison.
Plan: home with [facility] and RW
--- NOTE | 2025-05-08 12:44 | VNURNOTE ---
Home Health Liaison met with patient at bedside to discuss [facility] nurse/therapy, visits, schedule and homebound status. Patient is agreeable and understands that visits at home will be 2-3 x per week to assess and teach medical management. While
liaison in room, PT arrived with new rolling walker for pt to take home. Patient is aware that [facility] will contact them for start of care in 1-2 days after discharge from .
[facility] referral completed in [facility].
[2025-05-08 13:06] VITALS: BP 139/68; PULSE 55; O2SAT 98
[2025-05-08] MEDS: MIRALAX 17 GRAMS PO (13:23)
== END 2025-05-08 13:44 | disposition home health service (06) ==
LOC: 1 ACUTE 03:07
PROVIDERS: ADMITTING PHYSICIAN Hospitalist; ATTENDING PHYSICIAN Internal Medicine; EMERGENCY PHYSICIAN Emergency Medicine; FAMILY PHYSICIAN Student in an Organized Health Care Education/Training Program
DX: S39.012A Strain of muscle, fascia and tendon of lower back, initial encounter (principal); M54.42 Lumbago with sciatica, left side; F41.9 Anxiety disorder, unspecified; F32.A Depression, unspecified; X50.1XXA Overexertion from prolonged static or awkward postures, initial encounter; J45.909 Unspecified asthma, uncomplicated; Z79.899 Other long term (current) drug therapy
CPT/HCPCS: 72100; 80048; 82728; 85027; 94640; 96372; 96374; 97116; 97163; 99285; G0378

== ENCOUNTER → 2025-06-03 18:27 | Outpatient (REF) | payer BC, SELFPAY | LOC: MRI 3T 18:27 | PROVIDERS: ATTENDING PHYSICIAN Student in an Organized Health Care Education/Training Program | DX: M54.16 Radiculopathy, lumbar region (principal); R32 Unspecified urinary incontinence | CPT/HCPCS: 72148 ==